=== PATIENT | female | born 1975 | race Two or more races ===

== ENCOUNTER 2017-02-21 16:09 | Emergency (ER) | payer SELFPAY ==
[~2017-02-21] VITALS: Ht 157.5 cm; Wt 63.4 kg
[2017-02-21 16:13] VITALS: BP 113/75
== END 2017-02-21 16:55 | disposition home or self-care (01) ==
LOC: ED 16:30
DX: Z76.1 Encounter for health supervision and care of foundling (principal)
CPT/HCPCS: 99281